=== PATIENT | male | born 1965 | race Caucasian/White ===

== ENCOUNTER 2017-08-22 06:39 | Day surgery (SDC) | payer MEDICAID ==
[2017-08-22] MEDS ORDERED: Lactated Ringers 1,000 ML IV SCH (07:30)
[2017-08-22] MEDS ORDERED: fentaNYL 100 MCG/2 ML SDV ONE (08:00)
[2017-08-22] MEDS ORDERED: Propofol 200 MG/20 ML SDV ONE (08:00)
[2017-08-22] MEDS ORDERED: Midazolam 1 MG/ML 2 ML SDV ONE (08:02)
[2017-08-22 10:19] VITALS: BP 120/81
--- NOTE | 2017-08-22 11:34 | OR ---
DATE OF PROCEDURE: 08/22/2017 PREOPERATIVE DIAGNOSIS: Colon cancer screening. POSTOPERATIVE DIAGNOSIS: Small colon polyp, 50 cm from the anal verge. PROCEDURE: Colonoscopy to the cecum with biopsy resection of small colon polyp , 50 cm from the anal verge. SURGEON: Maurisio Navarrete MD. ANESTHESIA: IV anesthesia with monitored anesthesia care. INDICATION: This 52-year-old white male was referred for a colonoscopy for colon cancer screening. He has never had a colonoscopic exam. I counseled him for the procedure, including risks and alternatives, and he gave his informed consent to proceed. DESCRIPTION OF PROCEDURE: The patient was placed in the left lateral decubitus position. IV anesthesia was administered by the Anesthesia Service. Time-out was held. A rectal exam was performed, which was unremarkable. The flexible video Olympus colonoscope was introduced through his anus, up his rectum, and out his colon all the way to the cecum. Once the cecum was reached, the scope was slowly withdrawn, examining the mucosa throughout. No mucosal abnormalities were noted until we reached 50 cm from the anal verge. Here, we saw a small polyp, which was removed with a few bites of a biopsy forceps. The specimen was sent to pathology. The scope was withdrawn further with no other lesions noted. The scope was retroflexed in the rectum with the distal rectum appearing unremarkable. The scope was straightened and removed. He tolerated the procedure well. Maurisio Navarrete MD /[id number] MTDD
== END 2017-08-22 10:27 | disposition home or self-care (01) ==
LOC: JP.SDS 06:39
PROVIDERS: ATTEND Surgery
DX: Z12.11 Encounter for screening for malignant neoplasm of colon (principal); D12.6 Benign neoplasm of colon, unspecified; J45.909 Unspecified asthma, uncomplicated; K21.9 Gastro-esophageal reflux disease without esophagitis
CPT/HCPCS: 45380; J2250; J2704; J3010; J7120; 88305

== ENCOUNTER 2017-09-05 07:07 | Day surgery (SDC) | payer MEDICAID ==
[2017-09-05] MEDS ORDERED: Sodium Chloride 0.9% 1,000 ML IV SCH (07:45)
[2017-09-05] MEDS ORDERED: Propofol 200 MG/20 ML SDV ONE (08:51)
[2017-09-05] MEDS ORDERED: fentaNYL 100 MCG/2 ML SDV ONE (08:51)
[2017-09-05] MEDS ORDERED: Midazolam 1 MG/ML 2 ML SDV ONE (08:51)
[2017-09-05 09:55] VITALS: BP 128/81
--- NOTE | 2017-09-13 13:38 | OR ---
DATE OF PROCEDURE: 09/05/2017 PROCEDURE: Esophagogastroduodenoscopy. FINDINGS: Esophageal ulcer, healing. COMPLICATIONS: None. SCHOOL OPERATIONS MANAGER: None. PREOPERATIVE DIAGNOSIS: Epigastric pain. POSTOPERATIVE DIAGNOSIS: Epigastric pain. RISKS: Risks, benefits, alternatives, limitations including, but not limited to infection, bleeding, and perforation were explained to the patient and he wished to proceed. PROCEDURE IN DETAIL: The patient was placed in left lateral decubitus position. The EGD scope was introduced and advanced atraumatically to the second part of the duodenum. The scope was brought back and retroflexed. No abnormality seen, except for at the GE junction, there was an inflammation consistent with a healing esophageal ulcer. No abnormalities noted. The patient tolerated the procedure well. Reece Daniels MD /[id number]
== END 2017-09-05 10:15 | disposition home or self-care (01) ==
LOC: JP.SDS 07:07
PROVIDERS: ATTEND Surgery
DX: K22.10 Ulcer of esophagus without bleeding (principal)
CPT/HCPCS: 43235; J2250; J2704; J3010; J7040

== ENCOUNTER 2020-05-02 06:40 | Emergency (ER) | payer MEDICARE ==
[2020-05-02 07:22] VITALS: BP 132/85; PULSE 86
[2020-05-02] MEDS ORDERED: Tetracaine HCl/PF 0.5% 4 ML Bottle EYELF ONE (07:50)
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
== END 2020-05-02 08:47 | disposition home or self-care (01) ==
LOC: JP.ED 06:40
DX: S05.02XA Injury of conjunctiva and corneal abrasion without foreign body, left eye, initial encounter (principal); H10.9 Unspecified conjunctivitis; H00.036 Abscess of eyelid left eye, unspecified eyelid; E11.9 Type 2 diabetes mellitus without complications; Z79.82 Long term (current) use of aspirin; Z79.84 Long term (current) use of oral hypoglycemic drugs; Z79.899 Other long term (current) drug therapy; X58.XXXA Exposure to other specified factors, initial encounter
CPT/HCPCS: 99283

== ENCOUNTER 2021-03-18 06:26 | Day surgery (SDC) | payer MEDICARE ==
[2021-03-18] MEDS: Sodium Chloride 0.9% 1,000 ML IV SCH (07:03)
[2021-03-18] MEDS ORDERED: Propofol 200 MG/20 ML SDV ONE (07:22)
[2021-03-18] MEDS ORDERED: fentaNYL 100 MCG/2 ML SDV ONE (07:22)
[2021-03-18] MEDS ORDERED: Midazolam 1 MG/ML 2 ML SDV ONE (07:23)
[2021-03-18 08:34] VITALS: PULSE 86
[2021-03-18 08:54] VITALS: BP 116/83
--- NOTE | 2021-03-18 13:58 | OR ---
DATE OF PROCEDURE: 03/18/2021 SURGEON: Reece Daniels MD PROCEDURE: Colonoscopy. FINDINGS: Descending colon polyp, approximately 1 cm, completely removed using hot snare wire device. COMPLICATION: None. SUSPENDER MAKER: None. ANESTHESIA: MAC. PREOPERATIVE DIAGNOSIS: Screening colonoscopy. POSTOPERATIVE DIAGNOSIS: Screening colonoscopy. RISKS: Risks, benefits, alternatives, and limitations including, but not limited to infection, bleeding, perforation, false positives and false negatives were explained to the patient and he wished to proceed. PROCEDURE IN DETAIL: The patient was placed in left lateral decubitus position. Digital rectal exam was performed without abnormality. Scope was introduced and advanced atraumatically to the ileocecal valve. A photo was taken of this. Scope was brought back to the ascending, transverse, descending colon, and retroflexed. Within the sigmoid colon, approximately 1 cm polyp was identified and completely removed. No evidence of old or new blood. No abnormal bleeding after removal. No abnormalities on retroflexion. No evidence of colitis. The patient tolerated the procedure well. Reece Daniels MD /[id number]
== END 2021-03-18 10:35 | disposition home or self-care (01) ==
LOC: JP.SDS 06:26
PROVIDERS: ATTEND Surgery
DX: Z12.11 Encounter for screening for malignant neoplasm of colon (principal); D12.4 Benign neoplasm of descending colon; J45.909 Unspecified asthma, uncomplicated; E78.00 Pure hypercholesterolemia, unspecified; E11.9 Type 2 diabetes mellitus without complications
CPT/HCPCS: 45385; 88305; J2250; J2704; J3010; J7030

== ENCOUNTER 2021-03-23 11:22 | Emergency (ER) | payer MEDICARE ==
[2021-03-23] MEDS ORDERED: Ketorolac 60 MG/2 ML SDV IM ONE (11:30)
--- NOTE | 2021-03-23 11:33 | EDM.PDOC ---
ED HPI GENERAL MEDICAL PROBLEM - General Chief Complaint: Chest Pain Stated Complaint: CHEST PAIN Time Seen by Provider: 03/23/21 11:29 Source of Information: Reports: Patient, RN Notes Reviewed History Limitations: Reports: No Limitations - History of Present Illness INITIAL COMMENTS - FREE TEXT/NARRATIVE: 5-year-old gentleman presents emergency department with a complaint of chest pain, he states his had chest pain for about 5 days he rates it 5 out of 10 is predominantly in his right chest hurts with a deep breath patient over the right chest area when he pushes on it. He was having a trigger point injection this morning and on the screening questions asked if he had chest pain and he admitted was sent to the emergency department for further evaluation. He does admit to doing some heavy labor at home over the last week or so - Related Data Allergies Allergy/AdvReac Type Severity Reaction Status Date / Time No Known Allergies Allergy Verified 03/23/21 11:26 Home Meds: Home Meds Acetaminophen [Mapap] 500 mg PO Q6H PRN 08/20/17 [History] Albuterol Sulfate [Proair Hfa] 2 puff PO Q6H PRN 08/20/17 [History] Fluticasone Propionate [Flonase] 2 spray NASBOTH DAILY 08/20/17 [History] traMADol HCl [Tramadol HCl] 50 mg PO DAILY PRN 06/12/18 [History] Insulin Glarg,Human.Rec.Analog [Lantus Solostar] 26 unit SUBCUT BEDTIME 03/24/20 [History] Aspirin 81 mg PO DAILY 05/02/20 [History] atorvaSTATin [Lipitor] 10 mg PO BEDTIME 03/15/21 [History] metFORMIN [Glucophage] 1,000 mg PO BID 03/15/21 [History] tiZANidine HCl [Zanaflex] 4 mg PO DAILY PRN 03/15/21 [History] Past Medical History HEENT History: Reports: Impaired Vision Cardiovascular History: Reports: High Cholesterol Respiratory History: Reports: Asthma Gastrointestinal History: Reports: GERD Genitourinary History: Reports: Renal Calculus Musculoskeletal History: Reports: Back Pain, Chronic Neurological History: Reports: Concussion Endocrine/Metabolic History: Reports: Diabetes, Type II - Infectious Disease History Infectious Disease History: Reports: Chicken Pox - Past Surgical History GI Surgical History: Reports: None, Colonoscopy, EGD Male Surgical History: Reports: Kidney Stone Extraction, Lithotripsy (ESWL), Ureteral Stent Neurological Surgical History: Reports: None Social & Family History - Family History Family Medical History: No Pertinent Family History Cardiac: Reports: Pacemaker - Caffeine Use Caffeine Use: Reports: Tea ED ROS GENERAL - Review of Systems Review Of Systems: See Below Constitutional: Reports: No Symptoms HEENT: Reports: No Symptoms Respiratory: Reports: No Symptoms Cardiovascular: Reports: Chest Pain GI/Abdominal: Reports: No Symptoms : Reports: No Symptoms ED EXAM, GENERAL - Physical Exam Exam: See Below Exam Limited By: No Limitations General Appearance: Alert, WD/WN, No Apparent Distress Respiratory/Chest: No Respiratory Distress, Lungs Clear, Normal Breath Sounds, No Accessory Muscle Use, Chest Non-Tender Cardiovascular: Regular Rate, Rhythm, No Murmur GI/Abdominal: Soft, Non-Tender #1 Interpretation EKG Date: 03/23/21 Time: 11:24 Rhythm: NSR Rate (Beats/Min): 76 [place]: Normal P-Wave: Present QRS: Normal ST-T: Normal QT: Normal Comparison: NA - No Prior EKG Course - Vital Signs Last Recorded V/S: Last Vital Signs Temp 98.2 F 03/23/21 11:30 Pulse 82 03/23/21 14:27 Resp 20 03/23/21 14:27 BP 132/89 03/23/21 14:27 Pulse Ox 93 L 03/23/21 14:27 - Orders/Labs/Meds Orders: Active Orders 24 hr Category Date Time Status Cardiac Monitoring [RC] .As Directed Care 03/23/21 11:30 Active EKG Documentation Completion [RC] ASDIRECTED Care 03/23/21 11:30 Active EKG 12 Lead [EK] Stat Ther 03/23/21 11:30 Ordered Labs: Laboratory Tests 03/23/21 03/23/21 03/23/21 Range/Units 11:43 11:43 14:30 WBC 9.6 (4.5-11.0) K/uL RBC 5.27 (4.30-5.90) M/uL Hgb 15.3 H (12.0-15.0) g/dL Hct 44.4 (40.0-54.0) % MCV 84 (80-98) fL MCH 29 (27-31) pg MCHC 35 (32-36) % Plt Count 254 (150-400) K/uL Neut % (Auto) 65 (36-66) % Lymph % (Auto) 21 L (24-44) % [place] % (Auto) 11 H (2-6) % Eos % (Auto) 3 (2-4) % Baso % (Auto) 1 (0-1) % Sodium 142 (140-148) mmol/L Potassium 4.2 (3.6-5.2) mmol/L Chloride 104 (100-108) mmol/L Carbon Dioxide 26 (21-32) mmol/L Anion Gap 12.5 (5.0-14.0) mmol/L BUN 9 (7-18) mg/dL Creatinine 1.0 (0.8-1.3) mg/dL Est Cr Clr Drug Dosing 98.18 mL/min Estimated GFR (MDRD) > 60 (>60) Glucose 116 H (74-106) mg/dL Calcium 9.9 (8.5-10.1) mg/dL Troponin I 0.035 < 0.017 (0.000-0.056) ng/mL Meds: Medications Discontinued Medications Generic Name Dose Route Start Last Admin Trade Name Freq PRN Reason Stop Dose Admin Ketorolac Tromethamine 60 mg 03/23/21 11:30 03/23/21 11:38 Ketorolac 60 Mg/2 Ml Sdv IM 03/23/21 11:31 60 mg ONETIME ONE Administration Departure - Departure Time of Disposition: 15:01 Disposition: Home, Self-Care 01 Condition: Fair Clinical Impression: Atypical chest pain Instructions: Nonspecific Chest Pain, Adult Referrals: PCP,None [Primary Care Provider] - Forms: ED Department Discharge Additional Instructions: Continue with your regular medications, please follow-up with your primary care provider in the next 2 to 3 days for reevaluation consider stress test in the future after discussion with your primary care provider Sepsis Event Note (ED) - Focused Exam Vital Signs: Vital Signs Temp Pulse Resp BP Pulse Ox 03/23/21 14:27 82 20 132/89 93 L 03/23/21 13:41 70 16 120/87 96 03/23/21 11:58 77 23 H 128/89 92 L 03/23/21 11:30 98.2 F 84 24 H 149/98 H 92 L 03/23/21 11:29 98.2 F 84 24 H 149/98 H 92 L - My Orders Last 24 Hours: My Active Orders 03/23/21 11:30 Cardiac Monitoring [RC] .As Directed EKG Documentation Completion [RC] ASDIRECTED EKG 12 Lead [EK] Stat - Assessment/Plan Last 24 Hours: My Active Orders 03/23/21 11:30 Cardiac Monitoring [RC] .As Directed EKG Documentation Completion [RC] ASDIRECTED EKG 12 Lead [EK] Stat Plan: Assessment Acuity = acute Site and laterality = atypical chest pain Etiology = unknown Manifestations = none Location of injury = Home Lab values = CBC BMP unremarkable initial troponin within the normal range 0.031 5 repeat troponin in 2 hours undetectable , x-ray shows no acute process, EKG is unchanged from prior Plan I did review lab work EKG results with him he continues to have some chest pain point tenderness on the right side some improvement with Toradol please go to follow-up with his primary care for further evaluation next 2 to 3 days This note was dictated using [employer] voice recognition software please call with any questions on syntax or grammar.
--- NOTE | 2021-03-23 12:47 | CR ---
CHEST: 2 view CLINICAL HISTORY:Chest pain COMPARISON:None FINDINGS: The heart size, pulmonary vascularity and hilar structures are normal. No infiltrate effusion or pneumothorax is seen. IMPRESSION: No acute cardiopulmonary process.
[2021-03-23 15:12] VITALS: BP 124/80; PULSE 73
== END 2021-03-23 15:11 | disposition home or self-care (01) ==
LOC: JP.ED 11:22
DX: R07.89 Other chest pain (principal); E78.00 Pure hypercholesterolemia, unspecified; E11.9 Type 2 diabetes mellitus without complications; Z79.4 Long term (current) use of insulin; Z79.82 Long term (current) use of aspirin
CPT/HCPCS: 36415; 71046; 80048; 84484; 85025; 93005; 96372; 99284; 99285; J1885